=== PATIENT | male | born 1960 | race Caucasian/White ===

== ENCOUNTER 2019-08-15 11:44 | Emergency (ER) | payer OTHER ==
[2019-08-15 11:58] VITALS: BP 110/74; PULSE 89; TEMP 98.1; BMI 31.0
--- NOTE | 2019-08-15 12:11 | PDOC ---
History of Present Illness - General Chief Complaint: Pain Stated Complaint: LOWER ABD PAIN Time Seen by Provider: 08/15/19 12:00 History Source: Patient - History of Present Illness Presenting Symptoms: Chest Pain Past History - Past Medical History Allergies/Adverse Reactions: Allergies Allergy/AdvReac Type Severity Reaction Status Date / Time No Known Allergies Allergy Verified 08/15/19 11:53 Home Medications: Ambulatory Orders NK [No Known Home Medication] 08/15/19 Asthma: Yes COPD: No - Immunization History Immunization Up to Date: Yes - Psycho Social/Smoking Cessation Hx Smoking History: Never smoked Hx Alcohol Use: No Drug/Substance Use Hx: No Review of Systems - Review of Systems Constitutional: No: Chills, Fever Respiratory: Yes: Cough. No: Shortness of Breath, Hemoptysis Cardiac (ROS): Yes: Chest Pain. No: Lightheadedness, Palpitations, Syncope *Physical Exam - Vital Signs Last Vital Signs Temp Pulse Resp BP Pulse Ox 98.1 F 89 20 110/74 97 08/15/19 11:48 08/15/19 11:48 08/15/19 11:48 08/15/19 11:48 08/15/19 11:48 - Physical Exam General Appearance: Yes: Appropriately Dressed. No: Apparent Distress HEENT: positive: Normal Voice Neck: positive: Supple Respiratory/Chest: positive: Chest Tender (sig ttp to L lower chest/LUQ), Lungs Clear, Normal Breath Sounds. negative: Respiratory Distress Cardiovascular: positive: Regular Rate, S1, S2 Gastrointestinal/Abdominal: positive: Soft Musculoskeletal: negative: CVA Tenderness Integumentary: positive: Dry, Warm Neurologic: positive: Fully Oriented, Alert, Normal Mood/Affect Heart Score/ECG Review - ECG Intrepretation Comment:: 08/15/19 12:22 Twelve-lead EKG was performed and reviewed by me. There is normal sinus rhythm with a normal rate. The axis is normal. The intervals are normal. There are no ST or T wave abnormalities. Impression: Normal twelve-lead EKG ED Treatment Course - LABORATORY CBC & Chemistry Diagram: 08/15/19 12:26 08/15/19 12:26 - ADDITIONAL ORDERS Additional order review: Laboratory Results 08/15/19 08/15/19 08/15/19 14:08 12:26 12:26 Sodium 139 Potassium 4.2 Chloride 106 Carbon Dioxide 24 Anion Gap 9 BUN 13.7 Creatinine 1.4 H Est GFR (CKD-EPI)AfAm 64.18 Est GFR (CKD-EPI)NonAf 55.38 Random Glucose 91 Calcium 9.0 Total Bilirubin 0.6 AST 20 ALT 40 Alkaline Phosphatase 96 Creatine Kinase 97 Troponin I < 0.02 < 0.02 Total Protein 7.5 Albumin 4.1 08/15/19 12:26 RBC 5.24 MCV 91.9 MCHC 33.9 RDW 13.8 MPV 7.3 L Neutrophils % 79.2 Lymphocytes % 9.8 Monocytes % 8.9 Eosinophils % 1.2 Basophils % 0.9 - RADIOLOGY Radiology Studies Ordered: Category Date Time Status CHEST PA & LAT [RAD] Stat Radiology 08/15/19 12:12 Completed - Medications Given in the ED: ED Medications Discontinued Medications Generic Name Dose Route Start Last Admin Trade Name Freq PRN Reason Stop Dose Admin Ketorolac Tromethamine 60 mg 08/15/19 12:12 08/15/19 12:16 Toradol Injection - IM 08/15/19 12:13 60 mg ONCE ONE Administration Medical Decision Making - Medical Decision Making 08/15/19 12:07 59 yo M, no sig hx, here 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 States for the past several days he has had a dry cough that he says is recurrent and only happens when he is driving the bus. Attributes cough to fumes coming out vents on bus. States he had similar pain in the past but to R chest and had extensive work-up including stress test and CTA that were all negative at [facility]. Patient denies any diaphoresis shortness of breath fever or chills. No illicit drug use and non -smoker See exam CP Not great story for ACS No obvious RF for DVT/PE No concern for dissection No infectious sxs Possible MSK given hx and reproducibility of pain on exam -pain control -ekg -cxr -labs -reassess 08/15/19 14:59 EKG normal. Labs including serial trops negative. Patient states pain significantly improved with Toradol. Stable for discharge to follow-up with PMD Discharge - Discharge Information Problems reviewed: Yes Clinical Impression/Diagnosis: Chest pain Qualifiers: Chest pain type: unspecified Qualified Code(s): R07.9 - Chest pain, unspecified Condition: Good Disposition: HOME - Follow up/Referral Referrals: Migue Arechiga MD [Primary Care Provider] - - Patient Discharge Instructions Patient Printed Discharge Instructions: DI for Chest Pain Additional Instructions: The cause of your chest pain may be musculoskeletal as your EKG, CXR an labs were normal here Take tylenol as needed for pain Please follow up with your PMD - Post Discharge Activity Work/Back to School Note: Back to Work
[2019-08-15] MEDS ORDERED: KETOROLAC TROMETHAMINE 60 MG/2 ML VIAL IM ONE (12:12)
[2019-08-15] MEDS ORDERED: KETOROLAC TROMETHAMINE 60 MG/2 ML VIAL ONE (12:16)
[2019-08-15 12:36] LABS: BASO % 0.9 % (0-2.0); EOS % 1.2 % (0-4.5); HEMATOCRIT 48.1 % (35.4-49); HEMOGLOBIN 16.3 GM/dL (11.7-16.9); LYMPH % 9.8 % (8-40); MCH 31.1 pg (25.7-33.7); MCHC 33.9 g/dl (32.0-35.9); MEAN CELL VOLUME 91.9 fl (80-96); MEAN PLT VOLUME 7.3 fl (7.5-11.1); MONO % 8.9 % (3.8-10.2); NEUT % 79.2 % (42.8-82.8); PLATELET COUNT 298 K/MM3 (134-434); RBC 5.24 M/mm3 (4.00-5.60); RDW 13.8 % (11.9-15.9); WHITE BLOOD COUNT 10.4 K/mm3 (4.0-10.0)
--- NOTE | 2019-08-15 13:05 | PDOC ---
*Physical Exam - Vital Signs Last Vital Signs Temp Pulse Resp BP Pulse Ox 98.1 F 89 20 110/74 97 08/15/19 11:48 08/15/19 11:48 08/15/19 11:48 08/15/19 11:48 08/15/19 11:48 ED Treatment Course - LABORATORY CBC & Chemistry Diagram: 08/15/19 12:26 08/15/19 12:26 - ADDITIONAL ORDERS Additional order review: 08/15/19 12:26 RBC 5.24 MCV 91.9 MCHC 33.9 RDW 13.8 MPV 7.3 L Neutrophils % 79.2 Lymphocytes % 9.8 Monocytes % 8.9 Eosinophils % 1.2 Basophils % 0.9 - Medications Given in the ED: ED Medications Discontinued Medications Generic Name Dose Route Start Last Admin Trade Name Fresean PRN Reason Stop Dose Admin Ketorolac Tromethamine 60 mg 08/15/19 12:12 08/15/19 12:16 Toradol Injection - IM 08/15/19 12:13 60 mg ONCE ONE Administration Medical Decision Making - Medical Decision Making 08/15/19 13:02 Pt seen by Midlevel Provider under my direct supervision I was available for consultation Ancillary studies reviewed - Labs wnl [id number] EKG was performed and reviewed by me. There is normal sinus rhythm with a normal rate. The axis is normal. The intervals are normal. There are no ST or T wave abnormalities. Impression: Normal twelve-lead EKG I agree with plan as outlined by Midlevel Provider Discharge - Discharge Information Problems reviewed: Yes Clinical Impression/Diagnosis: Chest pain Qualifiers: Chest pain type: unspecified Qualified Code(s): R07.9 - Chest pain, unspecified Condition: Good Disposition: HOME - Follow up/Referral Referrals: Migue Arechiga MD [Primary Care Provider] - - Patient Discharge Instructions Patient Printed Discharge Instructions: DI for Chest Pain Additional Instructions: The cause of your chest pain may be musculoskeletal as your EKG, CXR an labs were normal here Take tylenol as needed for pain Please follow up with your PMD - Post Discharge Activity Work/Back to School Note: Back to Work
[2019-08-15 13:11] LABS: ALBUMIN 4.1 g/dl (3.4-5.0); BILIRUBIN,TOTAL 0.6 mg/dL (0.2-1); BLOOD UREA NITROGEN 13.7 mg/dL (7-18); CREATININE 1.4 mg/dL (0.55-1.3); POTASSIUM 4.2 mmol/L (3.5-5.1); TOT PROT 7.5 g/dl (6.4-8.2)
--- NOTE | 2019-08-15 14:17 | EKG ---
Test Reason : Blood Pressure : / mmHG Vent. Rate : 076 BPM Atrial Rate : 076 BPM P-R Int : 146 ms QRS Dur : 082 ms QT Int : 360 ms P-R-T Axes : 061 035 030 degrees QTc Int : 405 ms NORMAL SINUS RHYTHM NORMAL ECG NO PREVIOUS ECGS AVAILABLE Confirmed by DUANE ALEXANDRE, ARMAND ([id number]) on 08/15/2019 2:16:30 PM Referred By: Confirmed By:ARMAND ZEPEDA MD
== END 2019-08-15 15:01 | disposition home or self-care (01) ==
LOC: JER 11:44
PROC: 3E0233Z Introduction of Anti-inflammatory into Muscle, Percutaneous Approach (ICD-10-PCS; principal; 2019-08-15)
DX: R07.9 Chest pain, unspecified (principal); J45.909 Unspecified asthma, uncomplicated
CPT/HCPCS: 36415; 71046-TC-FY; 80053; 82550; 84484; 85025; 93005; 93010; 99284-25